=== PATIENT | female | born 1990 | race Caucasian/White ===

== ENCOUNTER 2017-02-08 10:05 | Emergency (ER) | payer MEDICAID ==
[2017-02-08] MEDS ORDERED: Ibuprofen 600 MG Tab PO ONE (10:11)
[2017-02-08] MEDS ORDERED: Cephalexin 500 MG Cap PO ONE (10:12)
--- NOTE | 2017-02-08 10:16 | EDM.PDOC ---
ED HPI GENERAL MEDICAL PROBLEM - General Chief Complaint: Bite:Animal, Insect Stated Complaint: SPIDER BITE Time Seen by Provider: 02/08/17 10:05 Source of Information: Reports: Patient History Limitations: Reports: No Limitations - History of Present Illness INITIAL COMMENTS - FREE TEXT/NARRATIVE: 26 years old w f came to the ed due to pain and swelling at her left flank and left groin. Pt has a spider bite chery at her left flank with redness surrounding the spider bite. Pt noticed tenderness at her left groin as well. No F/C/N/V or disuria or any other acute medical issues. Denies possible . BP 137/70 Temp 36.7 Pulse 72 RR 17 Pulse ox 99 on RA Onset Date: 02/06/17 Onset Time: 07:00 Duration: Day(s):, Getting Worse Location: Reports: Back Quality: Reports: Ache, Burning Severity: Mild Improves with: Reports: Rest Worsens with: Reports: Movement Context: Reports: Other (spider bite left flank) Associated Symptoms: Reports: No Other Symptoms left lower back (skin) Pain Score (Numeric/FACES): 7 - Related Data Allergies Allergy/AdvReac Type Severity Reaction Status Date / Time amoxicillin trihydrate Allergy Unknown Nausea Verified 04/11/15 18:21 [From Augmentin] potassium clavulanate Allergy Unknown Nausea Verified 04/11/15 18:21 [From Augmentin] erythromycin base Allergy Hives Verified 02/08/17 10:14 hydromorphone HCl Allergy Nausea and Verified 04/11/15 18:21 [From Dilaudid] Vomiting Home Meds: Home Meds Cephalexin [Keflex] 500 mg PO Q6HR #40 cap 02/08/17 [Rx] Past Medical History Gastrointestinal History: Reports: GERD Genitourinary History: Reports: Pyelonephritis, Other (See Below) Other Genitourinary History: 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 OB/BYN History: LEEP PRODECURE WITH BIOPSY Musculoskeletal History: Reports: Other (See Below) Other Musculoskeletal History: fractured toe and fingers Psychiatric History: Reports: Anxiety, Depression Endocrine/Metabolic History: Reports: Diabetes, Gestational - Past Surgical History GI Surgical History: Reports: Colonoscopy, Other (See Below) Social & Family History - Family History HEENT: Reports: None Cardiac: Reports: Heart Failure, High Cholesterol, Hypertension Respiratory: Reports: COPD GI: Reports: Cholelithiasis, Hiatal Hernia : Reports: Pyelonephritis, Renal Calculus OBGYN: Reports: Musculoskeletal: Reports: Arthritis Neurological: Reports: None Psychiatric: Reports: Anxiety, Depression Endocrine/Metabolic: Reports: Obesity/MBI 30+ - Tobacco Use Smoking Status *Q: Current Every Day Smoker Years of Tobacco use: 5 Packs/Tins Daily: 0.2 Used Tobacco, but Quit: Yes Month Tobacco Last Used: september 2014 Second Hand Smoke Exposure: No - Alcohol Use Days Per Week of Alcohol Use: 1 Number of Drinks Per Day: 3 Total Drinks Per Week: 3 - Recreational Drug Use Recreational Drug Use: No ED ROS GENERAL - Review of Systems Review Of Systems: See Below Constitutional: Reports: No Symptoms HEENT: Reports: No Symptoms Respiratory: Reports: No Symptoms Cardiovascular: Reports: No Symptoms Endocrine: Reports: No Symptoms GI/Abdominal: Reports: No Symptoms : Reports: No Symptoms Musculoskeletal: Reports: No Symptoms Skin: Reports: Rash (left flank) Neurological: Reports: No Symptoms Psychiatric: Reports: No Symptoms Hematologic/Lymphatic: Reports: No Symptoms Immunologic: Reports: No Symptoms ED EXAM, ANIMAL BITE - Physical Exam Exam: See Below Exam Limited By: No Limitations General Appearance: Alert, WD/WN, No Apparent Distress Eye Exam: Bilateral Eye: Normal Inspection Ears: Normal External Exam Nose: Normal Inspection Throat/Mouth: Normal Inspection Head: Atraumatic, Normocephalic Neck: Normal Inspection, Supple, Non-Tender Respiratory/Chest: No Respiratory Distress, Lungs Clear, Normal Breath Sounds, No Accessory Muscle Use, Chest Non-Tender Cardiovascular: Normal Peripheral Pulses, Regular Rate, Rhythm Peripheral Pulses: 1+: Radial (L) GI/Abdominal: Normal Bowel Sounds, Soft, Non-Tender (Female) Exam: Deferred Rectal (Female) Exam: Deferred Back Exam: Other (spider bile left flank with erythema) Extremities: Normal Inspection Neurological: Alert, Oriented, CN II-XII Intact Psychiatric: Normal Affect Skin Exam: Rash (spider bite left flank with erythema surrounding the bite) Lymphadenopathy: Left: Inguinal Adenopathy Lymphatic: Adenopathy (left groin) Course - Vital Signs Text/Narrative:: 26 years old w f came to the ed due to pain and swelling at her left flank and left groin. Pt has a spider bite chery at her left flank with redness surrounding the spider bite. Pt noticed tenderness at her left groin as well. No F/C/N/V or disuria or any other acute medical issues. BP 137/70 Temp 36.7 Pulse 72 RR 17 Pulse ox 99 on RA PE: Spiderbite left flank with erythema and LK swelling Tx: Keflex, Motrin Reexam: Improved Plan: D/C with instructions Last Recorded V/S: Last Vital Signs Temp 36.8 C 02/08/17 10:15 Pulse 97 02/08/17 10:15 Resp 17 02/08/17 10:15 BP 136/74 02/08/17 10:15 Pulse Ox 100 02/08/17 10:15 - Orders/Labs/Meds Meds: Medications Discontinued Medications Generic Name Dose Route Start Last Admin Trade Name Chandan PRN Reason Stop Dose Admin Cephalexin 500 mg 02/08/17 10:12 Keflex PO 02/08/17 10:13 ONETIME ONE Ibuprofen 600 mg 02/08/17 10:11 Motrin PO 02/08/17 10:12 ONETIME ONE Departure - Departure Time of Disposition: 10:15 Disposition: Home, Self-Care 01 Condition: Good Clinical Impression: Spider bite Qualifiers: Encounter type: initial encounter - Discharge Information Prescriptions: Cephalexin [Keflex] 500 mg PO Q6HR #40 cap Instructions: Spider Bite Referrals: Riley Aleaxnder MD [Primary Care Provider] - Forms: ED Department Discharge Additional Instructions: Please keep the affected area dry and clean, please take the Abx as recommended , Motrin for pain, please f/o, come back if your symptoms get worse acutely.
[2017-02-08 10:17] VITALS: BP 136/74
== END 2017-02-08 10:23 | disposition home or self-care (01) ==
LOC: FB.ED 10:05
DX: S30.861A Insect bite (nonvenomous) of abdominal wall, initial encounter (principal); F17.210 Nicotine dependence, cigarettes, uncomplicated; Z88.1 Allergy status to other antibiotic agents; Z88.8 Allergy status to other drugs, medicaments and biological substances; W57.XXXA Bitten or stung by nonvenomous insect and other nonvenomous arthropods, initial encounter
CPT/HCPCS: 99282

== ENCOUNTER 2017-02-10 20:15 | Emergency (ER) | payer OTHER, MEDICAID ==
[2017-02-10] MEDS ORDERED: Sulfamethoxazole/Trimethoprim 800-160 MG Tab PO ONE (20:34)
[2017-02-10 20:58] VITALS: BP 125/74
--- NOTE | 2017-02-11 01:07 | ER ---
DATE SEEN: 02/10/2017 TIME SEEN: 2036 hours. CHIEF COMPLAINT: Spider bite. HISTORY OF PRESENT ILLNESS: This is a 26-year-old female, who came in on Friday and saw Dr. Sanchez for a presumed spider bite on the left flank. She has been taking cephalexin, but no improvement. Warm, red, and painful. She has not actually visualized any spider bite. REVIEW OF SYSTEMS: No fever or chills. MEDICATIONS: Reviewed. ALLERGIES: Reviewed. PHYSICAL EXAMINATION: VITAL SIGNS: Afebrile and normotensive. SKIN: Left flank revealed a red area with crusty lesions. It is warm and tender to palpation, but no fluctuance. IMPRESSION: Cellulitis. PLAN: Discontinue cephalexin and start Bactrim DS one tablet b.i.d. Warm compresses. Follow up in two days or sooner if needed. /[id number] BILLY/BRENDA
== END 2017-02-10 20:50 | disposition home or self-care (01) ==
LOC: FB.ED 20:15
DX: L03.311 Cellulitis of abdominal wall (principal)
CPT/HCPCS: 99281; A9270

== ENCOUNTER 2017-05-31 21:02 | Emergency (ER) | payer OTHER, MEDICAID ==
[2017-05-31] MEDS ORDERED: Hydrocortisone/Neomycin/Polymyxin B Ophth Susp 7.5 ML Bottle ONE (21:31)
[2017-05-31 21:47] VITALS: BP 107/57
--- NOTE | 2017-06-02 08:35 | ER ---
DATE SEEN: 05/31/2017 CHIEF COMPLAINT: Eye tearing. HISTORY OF PRESENT ILLNESS: This is a 26-year-old female with right eye tearing since yesterday. She typically wears contact lenses, but took them out when this started tearing. It is associated with some nasolacrimal pain and mild headache. Denies any vomiting or visual disturbance. ALLERGIES: Penicillin, upset stomach. SOCIAL HISTORY: Noncontributory. PAST MEDICAL HISTORY: Five months . PHYSICAL EXAMINATION: VITAL SIGNS: Her blood pressure is normal-129/58, pulse is 94, temperature is 98.2. HEAD: Normal size. EYES: The conjunctiva is mildly injected bilaterally. Extraocular movements are intact. Both pupils are equal and reactive to light. There is extensive nasolacrimal drainage that is clear from the right eye. IMPRESSION: My final impression is conjunctivitis. PLAN: Cortisporin drops 2 drops to both eyes for 5 days 3 times a day. I advised her to be seen by Optometry on Friday. Take Tylenol p.r.n. for pain. Return with any worsening symptoms, visual disturbance, fever, vomiting. TIME SEEN: 2124 hours. /[id number] TN/MODL
== END 2017-05-31 21:40 | disposition home or self-care (01) ==
LOC: FB.ED 21:02
DX: H10.9 Unspecified conjunctivitis (principal); Z88.0 Allergy status to penicillin
CPT/HCPCS: 99282; A9270-GY

== ENCOUNTER 2017-09-29 12:19 | Inpatient (IN) | payer OTHER, MEDICAID ==
[2017-09-29] MEDS ORDERED: Dextrose 5%-0.9% NaCl 1,000 ML IV SCH (14:15)
[2017-09-29] MEDS: Sodium Chloride 0.9% 10 ML Syringe FLUSH PRN (14:36)
[2017-09-29] MEDS: Dextrose 5%-0.9% NaCl 1,000 ML IV SCH ×2 (17:49→21:09)
[2017-09-29] MEDS ORDERED: Scopolamine 1.5 MG Transdermal Patch TOP ONE (19:06)
[2017-09-29] MEDS ORDERED: Naloxone 0.4 MG/ML SDV IVPUSH PRN ×3 (19:07→19:51)
[2017-09-29] MEDS ORDERED: ePHEDrine 50 MG/ML SDV ONE (19:13)
[2017-09-29] MEDS ORDERED: Scopolamine 1.5 MG Transdermal Patch ONE (19:13)
[2017-09-29] MEDS ORDERED: Naloxone 0.4 MG/ML SDV ONE (19:13)
[2017-09-29] MEDS ORDERED: Morphine PF 10 MG/10 ML SDV ONE ×2 (19:14→22:42)
[2017-09-29] MEDS ORDERED: fentaNYL 100 MCG/2 ML SDV ITHECAL ONE ×2 (19:14→22:42)
[2017-09-29] MEDS ORDERED: Scopolamine 1.5 MG Transdermal Patch TOP SCH (19:51)
[2017-09-29] MEDS ORDERED: Promethazine 25 MG/ML SDV IV PRN (19:51)
[2017-09-29] MEDS ORDERED: diphenhydrAMINE 50 MG/ML SDV IVPUSH PRN ×2 (19:51)
[2017-09-29] MEDS ORDERED: ePHEDrine 50 MG/ML SDV IVPUSH PRN (19:51)
[2017-09-29] MEDS ORDERED: Naltrexone 50 MG Tab PO SCH (19:51)
[2017-09-29] MEDS ORDERED: hydrOXYzine HCl 50 MG/ML SDV IM PRN ×2 (19:51)
[2017-09-29] MEDS ORDERED: Metoclopramide 10 MG/2 ML SDV IVPUSH PRN (19:51)
[2017-09-29] MEDS ORDERED: Naloxone 0.4 MG in Sodium Chloride 0.9% 100 ML IV PRN (19:51)
[2017-09-29] MEDS ORDERED: Naltrexone 50 MG Tab PO PRN (19:51)
[2017-09-29] MEDS ORDERED: Ondansetron 4 MG/2 ML SDV IVPUSH ONE ×2 (22:45→23:00)
[2017-09-30] MEDS: Nalbuphine 10 MG/1 ML Vial IVPUSH PRN ×2 (02:09→10:02)
[2017-09-30] MEDS: Dextrose 5%-0.9% NaCl 1,000 ML IV SCH (05:47)
[2017-09-30] MEDS ORDERED: Ibuprofen 600 MG Tab PO PRN (09:26)
[2017-09-30] MEDS: Prenatal Multivitamin with Calcium/Folic Acid/Fe Fumarate Cap PO SCH (09:30)
[2017-09-30] MEDS: Docusate Sodium 100 MG Cap PO SCH ×2 (09:30→21:53)
[2017-09-30] MEDS: Sodium Chloride 0.9% 10 ML Syringe FLUSH PRN (10:02)
[2017-09-30] MEDS: Acetaminophen/Codeine 300-30 MG Tab PO PRN ×2 (13:46→18:51)
--- NOTE | 2017-09-30 13:51 | PN ---
DATE SEEN: 09/30/2017 TIME: 0900 hours. SUBJECTIVE: Yue Telles is a 26-year-old, 2 female, about 7 hours . Doing well. Unable to void. Catheterization will be obtained. The pain is controlled. No complicating issue. OBJECTIVE: U-3 tone satisfactory. Perineum intact. Vital signs stable. ASSESSMENT: care. PLAN: Catheter is indicated. Analgesics as appropriate. RhoGAM workup all should go well. /[id number] /BRENDA
--- NOTE | 2017-09-30 13:51 | DEL ---
DATE OF DELIVERY: 09/29/2017 HISTORY: Yue Telles is a 26-year-old, 2, para 1-0-0-1 female, admitted to [facility] for observation. 36 and 5 days' gestation. History of previous 37-week gestation delivery. Uncomplicated , except for management of diabetes. She has been on insulin therapy, premeal. Doing well, growth has been appropriate. No complicating issue. Group B rectovaginal culture negative. PAST MEDICAL HISTORY: Past history reviewed and appropriate. SOCIAL HISTORY: Nonsmoker. PHYSICAL EXAMINATION: VITAL SIGNS: Stable. NECK: Benign. Thyroid small. CHEST: Clear in all lung alvarado. HEART: Regular without ectopy or murmur. BREASTS: Symmetric, parous, without masses. ABDOMEN: Term gravid uterus. Initial exam, per nursing staff, 4 cm, -1 station, vertex. DELIVERY NOTE: Appears to be in active labor. Was observed through the day. Late afternoon, she was still 4 cm. Labor was nonproductive. Amniotomy was performed for clear fluid. Labor relatively unprogressive. Intrathecal was placed, good benefit, amniotomy had been performed, 6 cm for some time. Elected to proceed with Pitocin augmentation. At about 0900 hours, on September 29, 2017, Pitocin was started. Labor progressed. Intrathecal was reestablished. Pain control was good. Went about 1 cm until complete. When complete, I was asked to attend delivery. Maternal effort was good. Intrathecal was objectively beneficial. Over the course of about 20 minutes, good maternal effort, delivered in OA presentation, over a midline episiotomy, which had been infiltrated with 2% lidocaine. Nuchal cord x1 was reduced and delivered without incident, in [place] position. The child pinked up wonderfully, male infant, scores 8 and 9. Vital signs documented. The child was placed on mom's tummy, warm and resuscitated with stimulation only. Once the cord had good pulse, it was doubly clamped, and dad cut the cord in attendance. Three-cord vessel was identified. Cord blood was obtained for investigations as appropriate. There was spontaneous placental separation, intact. Pitocin was resumed intravenously. Uterine tone was excellent. Blood loss was minimal. The wound was without complication, midline, without extension. I re- infiltrated with lidocaine and repaired in a complex fashion with 2-0 Chromic suture. Surgical results were excellent. A little hematoma at right labia. Blood loss was 150 mL. ASSESSMENT: 1. Near-term intrauterine , 35 weeks and 6 days' gestation. 2. Spontaneous labor. Intrathecal analgesia. Augmentation with Pitocin. 3. Vaginal delivery with midline episiotomy. 4. Male infant, weight 6 pounds 15 ounces, scores 8 and 9. 5. Planned nursing nutrition. PLAN: Routine course. No complicating issues. General well being. RhoGAM workup appropriate. /[id number] NISSA/BRENDA
[2017-10-01 00:30] VITALS: BP 107/60
[2017-10-01] MEDS: Acetaminophen/Codeine 300-30 MG Tab PO PRN (04:25)
[2017-10-01] MEDS: Docusate Sodium 100 MG Cap PO SCH (09:31)
[2017-10-01] MEDS: Prenatal Multivitamin with Calcium/Folic Acid/Fe Fumarate Cap PO SCH (09:31)
--- NOTE | 2017-10-01 14:07 | DISCH ---
DISCHARGE DATE: 10/01/2017 REASON FOR HOSPITALIZATION: Term intrauterine , with vaginal delivery. HOSPITAL COURSE: Yue Telles is a 26-year-old, 2, para 2, female, 2 days . Please see dictated history and physical, Labor and Delivery note. In-hospital course was without complication. Little bladder lack of emptying, catheterization x1. Nursing well. Activity was without conflict. Perineum is healing without difficulty. hemoglobin 9.3, hematocrit 27.9. Urinalysis otherwise unremarkable. PHYSICAL EXAMINATION: NECK: Benign. CHEST: Clear in all lung alvarado. HEART: Regular without ectopy or murmur. ABDOMEN: U-3. Perineum intact. Minimal ecchymoses. GENITOURINARY: Limited lochia and bleeding. day 2, vaginal delivery. PLAN: Lengthy discharge recommendations and care. Discharge planning in place. vitamin. Tylenol or ibuprofen at therapeutic doses. Moderated limitations. Followup in 6 weeks' time. SURGICAL PROCEDURES: None. Vaginal delivery with second-degree episiotomy. /[id number] /BRENDA
== END 2017-10-01 15:07 | disposition home or self-care (01) | DRG 774 ==
LOC: FB.OBCHECK 12:19 → FB.OB 12:21 → FB.OBCHECK 17:15 → FB.OB 17:15
PROVIDERS: ADMIT Family Medicine; ATTEND Family Medicine
PROC: 10E0XZZ Delivery of Products of Conception, External Approach (ICD-10-PCS; principal; 2017-09-29)
PROC: 0KQM0ZZ Repair Perineum Muscle, Open Approach (ICD-10-PCS; 2017-09-29)
PROC: 0W8NXZZ Division of Female Perineum, External Approach (ICD-10-PCS; 2017-09-29)
PROC: 10907ZC Drainage of Amniotic Fluid, Therapeutic from Products of Conception, Via Natural or Artificial Opening (ICD-10-PCS; 2017-09-29)
PROC: 3E033VJ Introduction of Other Hormone into Peripheral Vein, Percutaneous Approach (ICD-10-PCS; 2017-09-29)
PROC: 6A550ZT Pheresis of Cord Blood Stem Cells, Single (ICD-10-PCS; 2017-09-29)
PROC: 00HU33Z Insertion of Infusion Device into Spinal Canal, Percutaneous Approach (ICD-10-PCS; 2017-09-29)
DX: O69.81X0 Labor and delivery complicated by cord around neck, without compression, not applicable or unspecified (principal); O90.89 Other complications of the puerperium, not elsewhere classified; R33.8 Other retention of urine; O24.424 Gestational diabetes mellitus in childbirth, insulin controlled; Z3A.36 36 weeks gestation of pregnancy; Z37.0 Single live birth; Z79.4 Long term (current) use of insulin; Z87.891 Personal history of nicotine dependence
CPT/HCPCS: 36415; 51701; 59300; 59409; 81001; 82962; 85014; 85018; 99211; A9270-GY; J2270; J2300; J2405; J2590; J3010; J7050

== ENCOUNTER 2019-08-12 15:54 | Emergency (ER) | payer MEDICAID, OTHER ==
[2019-08-12] MEDS: Sodium Chloride 0.9% 10 ML Syringe FLUSH PRN ×2 (16:20→16:32)
[2019-08-12] MEDS ORDERED: Ketorolac 30 MG/ML SDV IVPUSH ONE (16:26)
[2019-08-12] MEDS ORDERED: Sodium Chloride 0.9% 1,000 ML IV ONE (16:51)
--- NOTE | 2019-08-12 16:57 | EDM.PDOC ---
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, soaked in the tub which did not help and the water turned yellow, she thought she had inc'd bleeding when she wiped altho she has had no additional bleeding here in the ED pt felt quite a bit better after Toradol, pain 9/10 on arrival no f/c/d, no n/v, otherwise feeling well quarantining at home, on maternity leave f/u with OB is next month Low Abdomen Pain Score (Numeric/FACES): 9 - Related Data Allergies Allergy/AdvReac Type Severity Reaction Status Date / Time amoxicillin trihydrate Allergy Unknown Nausea Verified 08/12/19 16:04 [From Augmentin] potassium clavulanate Allergy Unknown Nausea Verified 08/12/19 16:04 [From Augmentin] hydromorphone HCl Allergy Nausea and Verified 08/12/19 16:04 [From Dilaudid] Vomiting Home Meds: Home Meds Ibuprofen [Motrin] 600 mg PO Q6H PRN #30 tablet 10/01/17 [Rx] Vit/FA/Fe Fumarate [-U] 1 each PO DAILY cap 10/01/17 [Rx] Past Medical History Gastrointestinal History: Reports: GERD Genitourinary History: Reports: Pyelonephritis, Other (See Below) Other Genitourinary History: Cervix scraped 3 months prior to . 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 Musculoskeletal History: Reports: Other (See Below) Other Musculoskeletal History: Fractured toe and fingers. History of dislocated shoulders and elbows when younger. Psychiatric History: Reports: Anxiety, Depression Endocrine/Metabolic History: Reports: Diabetes, Gestational - Past Surgical History HEENT Surgical History: Reports: Adenoidectomy, Myringotomy w Tube(s), Tonsillectomy GI Surgical History: Reports: Colonoscopy, EGD Female Surgical History: Reports: None Social & Family History - Family History Family Medical History: Noncontributory HEENT: Reports: None Cardiac: Reports: Heart Failure, High Cholesterol, Hypertension Respiratory: Reports: COPD GI: Reports: Cholelithiasis, Hiatal Hernia : Reports: Pyelonephritis, Renal Calculus OBGYN: Reports: Musculoskeletal: Reports: Arthritis Neurological: Reports: None Psychiatric: Reports: Anxiety, Depression Endocrine/Metabolic: Reports: Obesity/MBI 30+ - Tobacco Use Smoking Status *Q: Former Smoker Used Tobacco, but Quit: Yes Month/Year Tobacco Last Used: 10 years ago - Caffeine Use Caffeine Use: Reports: Soda - Recreational Drug Use Recreational Drug Use: No ED ROS GENERAL - Review of Systems Review Of Systems: See Below Constitutional: Reports: No Symptoms HEENT: Reports: No Symptoms Respiratory: Reports: No Symptoms Cardiovascular: Reports: No Symptoms Endocrine: Reports: No Symptoms GI/Abdominal: Reports: No Symptoms : Reports: No Symptoms, Other (minimal lochia). Denies: Dysuria, Flank Pain, Frequency, Urgency Musculoskeletal: Reports: No Symptoms Skin: Reports: No Symptoms Neurological: Reports: No Symptoms Psychiatric: Reports: No Symptoms Hematologic/Lymphatic: Reports: No Symptoms Immunologic: Reports: No Symptoms ED EXAM, GENERAL - Physical Exam Exam: See Below Exam Limited By: No Limitations General Appearance: Alert, WD/WN, Mild Distress, Other (alert, conversant, resti ng on bed) Nose: Normal Inspection, Normal Mucosa, Nasal Flaring Head: Atraumatic, Normocephalic Neck: Normal Inspection, Supple, Non-Tender, Full Range of Motion. No: Lymphadenopathy (R) Respiratory/Chest: No Respiratory Distress, Lungs Clear, Normal Breath Sounds, No Accessory Muscle Use, Chest Non-Tender Cardiovascular: Regular Rate, Rhythm, No Edema, No Gallop, No JVD, No Murmur, No Rub GI/Abdominal: Soft, No Distention, Other (soft, ND, minimal excess adipose tissue, mild tender in midline and suprapubic, fundus not appreciated, no masses, no palpable stool, colon NT) Back Exam: Normal Inspection, Full Range of Motion. No: CVA Tenderness (R), CVA Tenderness (L) Extremities: Normal Inspection, Non-Tender, No Pedal Edema Neurological: Alert, Oriented, CN II-XII Intact, Normal Cognition, No Motor/Sensory Deficits Psychiatric: Normal Affect Skin Exam: Warm, Dry, Intact, Normal Color, No Rash Lymphatic: No Adenopathy Course - Vital Signs Last Recorded V/S: Last Vital Signs Temp 36.9 C 08/12/19 16:00 Pulse 71 08/12/19 16:00 Resp 20 08/12/19 16:00 BP 125/73 08/12/19 16:00 Pulse Ox 98 08/12/19 16:00 - Orders/Labs/Meds Orders: Active Orders 24 hr Category Date Time Status URINALYSIS W/MICROSCOPIC [UA W/MICROSCOPIC] [URIN] Stat Lab 08/12/19 16:51 Ordered Sodium Chloride 0.9% [Normal Saline] 1,000 ml Med 08/12/19 16:51 Ordered IV .BOLUS Sodium Chloride 0.9% [Saline Flush] Med 08/12/19 16:32 Active 10 ml FLUSH ASDIRECTED PRN Medication Orders Sodium Chloride (Normal Saline) 1,000 mls @ 999 mls/hr IV .BOLUS ONE Stop: 08/12/19 17:51 Last Admin: 08/12/19 16:53 Dose: 999 mls/hr Documented by: KWASI Sodium Chloride (Saline Flush) 10 ml FLUSH ASDIRECTED PRN PRN Reason: IV Use Last Admin: 08/12/19 16:32 Dose: 10 ml Documented by: Admin: 08/12/19 16:20 Dose: 10 ml Documented by: KWASI Labs: Laboratory Tests 08/12/19 08/12/19 08/12/19 Range/Units 16:30 16:30 16:30 WBC 14.5 H (4.5-12.0) X10-3/uL RBC 3.75 (3.23-5.20) x10(6)uL Hgb 11.6 (11.5-15.5) g/dL Hct 34.7 (30.0-51.3) % MCV 92.6 (80-96) fL MCH 30.9 (27.7-33.6) pg MCHC 33.4 (32.2-35.4) g/dL RDW 12.3 (11.5-15.5) % Plt Count 310 (125-369) X10(3)uL MPV 8.8 (7.4-10.4) fL Neut % (Auto) 73.2 (46-82) % Lymph % (Auto) 18.8 (13-37) % [place] % (Auto) 6.1 (4-12) % Eos % (Auto) 2 (1.0-5.0) % Baso % (Auto) 0 (0-2) % Neut # (Auto) 10.7 H (1.6-8.3) # Lymph # (Auto) 2.7 (0.6-5.0) # [place] # (Auto) 0.9 (0.0-1.3) # Eos # (Auto) 0.2 (0.0-0.8) # Baso # (Auto) 0.0 (0.0-0.2) # PT 9.9 (9.0-11.1) sec INR 0.91 L (1.00-1.24) Sodium 142 (135-145) mmol/L Potassium 4.0 (3.5-5.3) mmol/L Chloride 105 (100-110) mmol/L Carbon Dioxide 30 (21-32) mmol/L BUN 16 (7-18) mg/dL Creatinine 0.8 (0.55-1.02) mg/dL Est Cr Clr Drug Dosing 85.83 mL/min Estimated GFR (MDRD) > 60 (>60) BUN/Creatinine Ratio 20.0 (9-20) Glucose 107 (80-116) mg/dL Calcium 9.2 (8.6-10.2) mg/dL Total Bilirubin 0.2 (0.1-1.3) mg/dL AST 14 (5-25) IU/L ALT 23 (12-36) U/L Alkaline Phosphatase 98 (56-112) IU/L C-Reactive Protein (0.5-0.9) mg/dL Total Protein 6.8 (6.0-8.0) g/dL Albumin 3.1 L (3.5-5.2) g/dL Globulin 3.7 g/dL Albumin/Globulin Ratio 0.8 06/25/20 Range/Units 16:35 WBC (4.5-12.0) X10-3/uL RBC (3.23-5.20) x10(6)uL Hgb (11.5-15.5) g/dL Hct (30.0-51.3) % MCV (80-96) fL MCH (27.7-33.6) pg MCHC (32.2-35.4) g/dL RDW (11.5-15.5) % Plt Count (125-369) X10(3)uL MPV (7.4-10.4) fL Neut % (Auto) (46-82) % Lymph % (Auto) (13-37) % [place] % (Auto) (4-12) % Eos % (Auto) (1.0-5.0) % Baso % (Auto) (0-2) % Neut # (Auto) (1.6-8.3) # Lymph # (Auto) (0.6-5.0) # [place] # (Auto) (0.0-1.3) # Eos # (Auto) (0.0-0.8) # Baso # (Auto) (0.0-0.2) # PT (9.0-11.1) sec INR (1.00-1.24) Sodium (135-145) mmol/L Potassium (3.5-5.3) mmol/L Chloride (100-110) mmol/L Carbon Dioxide (21-32) mmol/L BUN (7-18) mg/dL Creatinine (0.55-1.02) mg/dL Est Cr Clr Drug Dosing mL/min Estimated GFR (MDRD) (>60) BUN/Creatinine Ratio (9-20) Glucose (80-116) mg/dL Calcium (8.6-10.2) mg/dL Total Bilirubin (0.1-1.3) mg/dL AST (5-25) IU/L ALT (12-36) U/L Alkaline Phosphatase (56-112) IU/L C-Reactive Protein 0.8 (0.5-0.9) mg/dL Total Protein (6.0-8.0) g/dL Albumin (3.5-5.2) g/dL Globulin g/dL Albumin/Globulin Ratio Meds: Medications Generic Name Dose Route Start Last Admin Trade Name Freq PRN Reason Stop Dose Admin Sodium Chloride 1,000 mls @ 999 mls/hr 08/12/19 16:51 08/12/19 16:53 Normal Saline IV 08/12/19 17:51 999 mls/hr .BOLUS ONE Administration Sodium Chloride 10 ml 08/12/19 16:32 08/12/19 16:32 Saline Flush FLUSH 10 ml ASDIRECTED PRN Administration IV Use Discontinued Medications Generic Name Dose Route Start Last Admin Trade Name Chandan PRN Reason Stop Dose Admin Ketorolac Tromethamine 30 mg 08/12/19 16:26 08/12/19 16:31 Toradol IVPUSH 08/12/19 16:27 30 mg ONETIME ONE Administration - Re-Assessments/Exams Free Text/Narrative Re-Assessment/Exam: 08/12/19 17:48 pelvic done with JACKSON Dumont in attendance, moderate old liquid blood with no clots in vault, BUS wnl, no tears noted, cx parous with no CMT, no mucus, no purulence, uterus is 2x normal size and c/w 9d , no inc'd tender of uterus or adnexa, ovaries not palpable, no masses of uterus or adnexa 08/12/19 17:58 u/a neg, no evidence of infection by labs or PE, pt feeling much better, pain only 3/10, feels more like a normal period pt likely had a small retained piece of placenta with old blood behind it which has now sloughed, as the uterus is so small for 9d and is NT, there does not appear to be advantage to obtaining at transvag u/s tomorrow, however if pt is not feeling much better, she knows to return to ED so that one can be done as 2d from now is Sat, it is not practical to have a 2d f/u with her program manager Departure - Departure Time of Disposition: 18:01 Disposition: Home, Self-Care 01 Condition: Good Clinical Impression: bleeding - Discharge Information *PRESCRIPTION DRUG MONITORING PROGRAM REVIEWED*: Not Applicable *COPY OF PRESCRIPTION DRUG MONITORING REPORT IN PATIENT GUILLERMINA: Not Applicable Referrals: Riley Alexander MD [Primary Care Provider] - Forms: ED Department Discharge Additional Instructions: Your female exam is normal for 9 days . There is no clinical evidence for infection or for additional retained products of conception. You likely had an adherent small piece of placenta that detached, releasing old blood. Take ibuprofen 200 mg 3 tabs and acetaminophen 500 mg 2 tabs 4 times a day for 2 days. An ultrasound can be obtained tomorrow if necessary. If you are not feeling much better tomorrow, certainly if you are feeling worse, you will need to return to the Emergency Department. May soak in the tub for 10 minutes several times a day. See your program manager physician next month as scheduled, earlier if needed. Sepsis Event Note (ED) - Evaluation Sepsis Screening Result: No Definite Risk - Focused Exam Vital Signs: Vital Signs Temp Pulse Resp BP Pulse Ox 08/12/19 16:00 36.9 C 71 20 125/73 98 - My Orders Last 24 Hours: My Active Orders 08/12/19 16:32 Sodium Chloride 0.9% [Saline Flush] 10 ml FLUSH ASDIRECTED PRN 08/12/19 16:51 URINALYSIS W/MICROSCOPIC [UA W/MICROSCOPIC] [URIN] Stat Sodium Chloride 0.9% [Normal Saline] 1,000 ml IV .BOLUS - Assessment/Plan Last 24 Hours: My Active Orders 08/12/19 16:32 Sodium Chloride 0.9% [Saline Flush] 10 ml FLUSH ASDIRECTED PRN 08/12/19 16:51 URINALYSIS W/MICROSCOPIC [UA W/MICROSCOPIC] [URIN] Stat Sodium Chloride 0.9% [Normal Saline] 1,000 ml IV .BOLUS
[2019-08-12 18:11] VITALS: BP 120/67; PULSE 64
== END 2019-08-12 18:08 | disposition home or self-care (01) ==
LOC: FB.ED 15:54
DX: O72.2 Delayed and secondary postpartum hemorrhage (principal); Z88.1 Allergy status to other antibiotic agents; Z88.5 Allergy status to narcotic agent
CPT/HCPCS: 36415; 80053; 81001; 85025; 85610; 86140; 87086; 96374; 99284; J1885; J7030

== ENCOUNTER 2021-06-27 23:18 | Emergency (ER) | payer OTHER ==
[2021-06-27] MEDS ORDERED: Acetaminophen/HYDROcodone 325-5 MG Tab PO ONE (23:19)
[2021-06-27] MEDS ORDERED: hydrOXYzine HCl 50 MG/ML SDV IM ONE (23:36)
[2021-06-27] MEDS ORDERED: fentaNYL 100 MCG/2 ML SDV IM ONE (23:36)
[2021-06-27 23:38] VITALS: BP 132/74; PULSE 88
== END 2021-06-27 23:50 | disposition home or self-care (01) ==
LOC: FB.ED 23:18
DX: M54.6 Pain in thoracic spine (principal); Z79.899 Other long term (current) drug therapy; Z88.0 Allergy status to penicillin; Z88.1 Allergy status to other antibiotic agents; Z88.5 Allergy status to narcotic agent
CPT/HCPCS: 96372; 99282; 99283; A9270; J3010; J3410

== ENCOUNTER 2021-09-07 14:59 | Emergency (ER) | payer OTHER ==
[2021-09-07 15:13] VITALS: PULSE 86
[2021-09-07 15:23] VITALS: BP 126/64
== END 2021-09-07 16:03 | disposition home or self-care (01) ==
LOC: FB.ED 14:59
DX: R07.89 Other chest pain (principal); Z88.0 Allergy status to penicillin; Z88.1 Allergy status to other antibiotic agents; Z88.5 Allergy status to narcotic agent; Z79.899 Other long term (current) drug therapy
CPT/HCPCS: 36415; 85379; 93005; 93010; 99282; 99284

== ENCOUNTER 2024-11-17 23:53 | Emergency (ER) | payer OTHER ==
[2024-11-18 01:16] LABS: BASOPHILS ABSOLUTE AUTO 0.1 x10-3/uL (0.0-0.1); BASOPHILS PERCENT AUTO 0.7 % (0.2-1.5); EOSINOPHILS ABSOLUTE AUTO 0.3 x10-3/uL (0.0-0.8); EOSINOPHILS PERCENT AUTO 2.8 % (0.6-8.1); LYMPHOCYTES ABSOLUTE AUTO 4.1 x10-3/uL (1.0-4.4); LYMPHOCYTES PERCENT AUTO 37.3 % (18.4-52.1); MEAN PLATELET VOLUME 9.8 fL (7.1-12.4); MONOCYTES ABSOLUTE AUTO 1.1 x10-3/uL (0.3-1.0); MONOCYTES PERCENT AUTO 9.8 % (4.4-15.7); NEUTROPHILS ABSOLUTE AUTO 5.4 x10-3/uL (1.5-6.3); NEUTROPHILS PERCENT AUTO 49.4 % (30.8-76.2); PLATELET COUNT,PLT 225 x10(3)uL (151-488); RED BLOOD CELL COUNT 4.37 x10(6)uL (3.60-5.20); RED CELL DISTRIBUTION WIDTH 12.8 % (12.3-16.5); WHITE BLOOD CELL COUNT,WBC 11.0 x10-3/uL (3.0-10.3)
[2024-11-18 01:20] LABS: BLOOD UREA NITROGEN,BUN 10 mg/dL (7-18); CARBON DIOXIDE,CO2 26 mmol/L (21-32); CHLORIDE,CL 106 mmol/L (100-110); CREATININE 0.7 mg/dL (0.55-1.02); EST CRCL DRUG DOSING (CG) 93.68 mL/min; ESTIMATED GFR 116 mL/min (>60); GLUCOSE RANDOM 95 mg/dL (80-116); POTASSIUM,K 3.9 mmol/L (3.5-5.3); SODIUM,NA 142 mmol/L (135-145)
[2024-11-18 01:26] LABS: GLUCOSE,URINE NORMAL (NORMAL); OCCULT BLOOD,URINE NEGATIVE (NEGATIVE)
[2024-11-18 01:26] LABS: A/G RATIO 1.3; ALANINE AMINOTRANSFERASE,ALT 30 U/L (12-36); ASPARTATE AMNIOTRANSFERASE,AST 15 IU/L (5-25); BILIRUBIN TOTAL 0.2 mg/dL (0.1-1.3); CREATINE KINASE,CK 91 IU/L (60-160); PROTEIN TOTAL,TP 7.1 g/dL (6.0-8.0)
[2024-11-18 01:34] LABS: APPEARANCE,URINE CLEAR (CLEAR); SQUAMOUS EPITHELIAL CELLS,UR OCCASIONAL (NS,R,O)
[2024-11-18 01:59] VITALS: BP 101/67; PULSE 81
== END 2024-11-18 02:17 | disposition home or self-care (01) ==
LOC: FB.ED 23:53
DX: T75.4XXA Electrocution, initial encounter (principal); R07.89 Other chest pain; F17.210 Nicotine dependence, cigarettes, uncomplicated; Z88.0 Allergy status to penicillin; Z88.1 Allergy status to other antibiotic agents; Z79.899 Other long term (current) drug therapy; Z86.16 Personal history of COVID-19
CPT/HCPCS: 36415; 71045; 80053; 81001; 82550; 83735; 84484; 85025; 93005; 99285